=== PATIENT | female | born 1955 | race African-American/Black ===

== ENCOUNTER 2019-04-09 13:25 | Outpatient (CLI) | payer MEDICARE ==
--- NOTE | 2019-04-09 14:30 | CT ---
Exam: CT lumbar spine without contrast HISTORY: Lumbar stenosis. Low back pain with radiation to both legs. COMPARISON: None FINDINGS: Five lumbar type vertebrae.. Lumbar spine vertebral body height is maintained. There is no vertebral body fracture. There is sclerosis along the inferior aspect of L4 and L5. There is associated osteophyte formation and vacuum disc phenomenon suggesting a combination of varying Modic change. 4.8 mm of anterolisthesis of L4 upon L5. There does appear to be a right-sided pars defect at L4. Visualized paraspinal muscles, retroperitoneal structures, solid organs are unremarkable Limited evaluation the contents of the central spinal canal and neural foramina due to technique T12-L1: Broad-based disc bulge with mild central canal stenosis. Bilaterally, neural foramina are pat ent L1-L2: No significant central canal stenosis. Bilaterally, neural foramina are patent. L2-L3: Broad-based disc bulge, ligament flavum thickening and facet hypertrophy result in mild centra l canal stenosis. Mild right foraminal narrowing. Left neural foramen is patent L3-L4: Broad-based disc bulge, ligament flavum thickening and facet hypertrophy result in mild centra l canal stenosis. Mild right foraminal narrowing. Left neural foramen is patent. L4-L5: Broad-based disc bulge, ligament flavum thickening and facet hypertrophy result in severe cent ral canal stenosis. Severe right and moderate to severe left neural foraminal narrowing L5-S1: Right pars defect along with a right hemilaminectomy defect. No evidence of significant centra l canal stenosis. Moderate right and moderate left neural foraminal narrowing. IMPRESSION: 1. Grade 1 anterolisthesis of L4 upon L5. Right L4 pars defect. 2. Severe central canal stenosis at L4-L5. Severe right and moderate to severe left foraminal narrowi ng at L4-L5. Moderate bilateral foraminal narrowing at L5-S1. Transcribed Date/Time: 04/09/2019 2:47 PM
== END 2019-04-09 13:26 | disposition home or self-care (01) ==
LOC: BICCT 13:25
PROVIDERS: ATTEND Neurological Surgery
DX: M48.062 Spinal stenosis, lumbar region with neurogenic claudication (principal); M48.07 Spinal stenosis, lumbosacral region; M43.16 Spondylolisthesis, lumbar region
CPT/HCPCS: 72131